=== PATIENT | male | born 1945 | race Caucasian/White ===

== ENCOUNTER 2017-01-17 17:27 | Inpatient (IN) | payer MEDICARE ==
[~2017-01-17] VITALS: Ht 177.8 cm; Wt 73.2 kg
[2017-01-17] VITALS (7 sets, daily range): BP systolic 86–109; BP diastolic 47–59
[~2017-01-17 17:27] MED LIST: ALPRAZOLAM0.25 M1 PO; AMLODIPINE10 MG PO; ASPIRIN325 MG PO; ENTRESTO 49-511 TAB PO; FERROUS SULF325 M1 PO; FUROSEMIDE20 MG PO; GLUCOPHAGE1000 MG PO; GLYBURIDE5 M1 PO; HYDROCO/APAP1 TA9 PO; INVOKAMET 150-11 TAB PO; LEVOTHYROXIN100 MC1 PO; LISINOP/HCTZ1 TA1 PO; LORTAB 7.5 PO; LOSARTAN POTASS50 MG PO; PRILOSEC40 MG PO; ROBITUSSIN AC10 ML PO; TOPROL XL PO; ULTRAM50 M1 PO
[2017-01-17 18:09] LABS: HEMATOCRIT 49.7 % (39.0-50.0); HEMOGLOBIN 16.6 g/dl (14.0-18.0); IMMATURE GRANULOCYTES 0.9 % (0.0-1.0); MEAN CELL VOLUME 88.6 fL CALC (80.0-100.0); MEAN CORPUSCULAR HGB 29.6 pG CALC (26.0-32.0); MEAN CORPUSCULAR HGB CONC 33.4 g/L CALC (32.0-36.0); NEUT# 5.52 thou/uL (1.82-7.42); RED BLOOD COUNT 5.61 mill/uL (4.70-6.10); RED CELL DISTRI WIDTH 15.9 % (11.5-15.5)
[2017-01-17] MEDS ORDERED: DIGOXIN0.125 MG PO (18:09)
[2017-01-17] MEDS ORDERED: ATORVASTATIN CA80 MG PO (18:09)
[2017-01-17] MEDS ORDERED: DOCUSATE CAL240 MG PO (18:10)
[2017-01-17] MEDS ORDERED: ASPIRIN81 MG PO (18:10)
[2017-01-17] MEDS ORDERED: FLONASE AL50 MCG/ACT (18:11)
[2017-01-17] MEDS ORDERED: ENTRESTO 24-261 TAB PO (18:11)
[2017-01-17] MEDS ORDERED: METHOCARBAM500 MG PO (18:12)
[2017-01-17] MEDS ORDERED: LEVOTHYROXIN100 MCG PO (18:12)
[2017-01-17] MEDS ORDERED: METO50TA52 PO (18:13)
[2017-01-17] MEDS ORDERED: ALDACTONE25 MG PO (18:15)
[2017-01-17] MEDS ORDERED: STIOLTO RESPIMA1 AER (18:16)
[2017-01-17] MEDS ORDERED: TRAMADOL HCL50 MG PO (18:17)
[2017-01-17] MEDS ORDERED: BRILINTA90 MG PO (18:17)
[2017-01-17] MEDS ORDERED: LORTAB 5-325 MG1 TAB PO (18:18)
[2017-01-17 18:27] LABS: ALBUMIN 4.8 g/dL (3.2-5.0); BILIRUBIN, TOTAL 0.7 mg/dL (0.0-1.4); CALCIUM 10.4 mg/dL (8.4-10.2); CREATININE 1.5 mg/dL (0.7-1.3); MAGNESIUM 2.2 mg/dL (1.6-2.3); TOTAL PROTEIN 8.8 g/dL (6.3-8.2)
[2017-01-17 18:29] LABS: POTASSIUM 6.3 mmol/l (3.5-5.1)
[2017-01-17] MEDS ORDERED: ATIVAN1 MG PO (18:56)
[2017-01-18] VITALS (9 sets, daily range): BP systolic 92–110; BP diastolic 53–66
[2017-01-18 06:05] LABS: HEMATOCRIT 43.7 % (39.0-50.0); HEMOGLOBIN 14.5 g/dl (14.0-18.0); IMMATURE GRANULOCYTES 0.3 % (0.0-1.0); MEAN CELL VOLUME 88.1 fL CALC (80.0-100.0); MEAN CORPUSCULAR HGB 29.2 pG CALC (26.0-32.0); MEAN CORPUSCULAR HGB CONC 33.2 g/L CALC (32.0-36.0); NEUT# 4.12 thou/uL (1.82-7.42); RED BLOOD COUNT 4.96 mill/uL (4.70-6.10); RED CELL DISTRI WIDTH 15.8 % (11.5-15.5)
[2017-01-18 06:36] LABS: BUN 49 mg/dL (8-23); BUN/CREATININE RATIO 39 (12-20 (CALC)); CARBON DIOXIDE 23 mmol/l (22-30); CHLORIDE 100 mmol/l (95-108); CREATININE 1.3 mg/dL (0.7-1.3); GFR 55 ML/MIN (>=60 (CALC)); GFR FOR AFR.AMER. > 60 ML/MIN (>=60 (CALC)); GLUCOSE 142 mg/dL (82-115); SODIUM 134 mmol/l (137-146)
[2017-01-18 06:39] LABS: ANION GAP 17 (6-22 (CALC)); POTASSIUM 5.5 mmol/l (3.5-5.1)
[2017-01-19 04:00] VITALS: BP 106/71
[2017-01-19 05:04] LABS: HEMATOCRIT 40.7 % (39.0-50.0); HEMOGLOBIN 13.6 g/dl (14.0-18.0); IMMATURE GRANULOCYTES 0.2 % (0.0-1.0); MEAN CELL VOLUME 88.9 fL CALC (80.0-100.0); MEAN CORPUSCULAR HGB 29.7 pG CALC (26.0-32.0); MEAN CORPUSCULAR HGB CONC 33.4 g/L CALC (32.0-36.0); NEUT# 3.09 thou/uL (1.82-7.42); RED BLOOD COUNT 4.58 mill/uL (4.70-6.10); RED CELL DISTRI WIDTH 15.6 % (11.5-15.5)
[2017-01-19 05:17] LABS: ANION GAP 14 (6-22 (CALC)); BUN 32 mg/dL (8-23); BUN/CREATININE RATIO 31 (12-20 (CALC)); CALCIUM 9.3 mg/dL (8.4-10.2); CALCULATED LDLCHOLESTEROL 18 mg/dL (62-129 (CALC)); CARBON DIOXIDE 26 mmol/l (22-30); CHLORIDE 101 mmol/l (95-108); GFR > 60 ML/MIN (>=60 (CALC)); GFR FOR AFR.AMER. > 60 ML/MIN (>=60 (CALC)); GLUCOSE 174 mg/dL (82-115); HDL CHOLESTEROL 32 mg/dL (>=40); POTASSIUM 4.8 mmol/l (3.5-5.1); SODIUM 136 mmol/l (137-146); TOTAL CHOLESTEROL 65 mg/dl (0-199); TOTAL TRIGLYCERIDES 72 mg/dl (30-149); VLDL CHOLESTROL 14 mg/dl (0-38 (CALC))
[2017-01-19 07:50] VITALS: BP 95/43
[2017-01-19 14:52] VITALS: BP 110/69
== END 2017-01-19 15:28 | DRG 641 ==
LOC: ENPENDDIS → ED 17:27 → ED-I 18:26 → ED 19:14 → ICU 19:15 → MS2 19:15
PROVIDERS: Emergency Medicine; Internal Medicine; ADMIT Internal Medicine; ATTEND Internal Medicine
DX: E87.5 Hyperkalemia (principal); N17.9 Acute kidney failure, unspecified; J44.9 Chronic obstructive pulmonary disease, unspecified; I42.8 Other cardiomyopathies; T50.0X5A Adverse effect of mineralocorticoids and their antagonists, initial encounter; T46.5X5A Adverse effect of other antihypertensive drugs, initial encounter; E11.9 Type 2 diabetes mellitus without complications; I10 Essential (primary) hypertension; E03.9 Hypothyroidism, unspecified; I25.10 Atherosclerotic heart disease of native coronary artery without angina pectoris; I25.5 Ischemic cardiomyopathy; F17.290 Nicotine dependence, other tobacco product, uncomplicated; Z79.84 Long term (current) use of oral hypoglycemic drugs; Z95.5 Presence of coronary angioplasty implant and graft

== ENCOUNTER → 2018-11-15 | Outpatient (REF) | payer MEDICARE ==
[~2018-11-15] MED LIST changes: +ALDACTONE25 MG PO; +ASPIRIN81 MG PO; +ATIVAN1 MG PO; +ATORVASTATIN CA80 MG PO; +BRILINTA90 MG PO; +DIGOXIN0.125 MG PO; +DOCUSATE CAL240 MG PO; +ENTRESTO 24-261 TAB PO; +FLONASE AL50 MCG/ACT; +GLUCOPHAGE500 MG PO; +IPRATROPIU0.5 MG/3 M IN; +LEVOTHYROXIN100 MCG PO; +LORTAB 5-325 MG1 TAB PO; +METHOCARBAM500 MG PO; +METO25TAB PO; +METO50TA52 PO; +STIOLTO RESPIMA1 AER; +TRAMADOL HCL50 MG PO
[2018-11-15 09:49] LABS: HEMATOCRIT 40.5 % (39.0-50.0); HEMOGLOBIN 13.5 g/dl (14.0-18.0); MEAN CELL VOLUME 94.6 fL CALC (80.0-100.0); MEAN CORPUSCULAR HGB 31.5 pG CALC (26.0-32.0); MEAN CORPUSCULAR HGB CONC 33.3 g/L CALC (32.0-36.0); RED BLOOD COUNT 4.28 mill/uL (4.70-6.10); RED CELL DISTRI WIDTH 14.4 % (11.5-15.5)
[2018-11-15 10:21] LABS: ALBUMIN 4.1 g/dL (3.2-5.0); ALKALINE PHOSPHATASE 63 u/l (38-126); ANION GAP 16 (6-22 (CALC)); BILIRUBIN, TOTAL 0.4 mg/dL (0.0-1.4); BUN 24 mg/dL (8-23); BUN/CREATININE RATIO 20 (12-20 (CALC)); CALCULATED LDLCHOLESTEROL 20 mg/dL (62-129 (CALC)); CARBON DIOXIDE 27 mmol/l (22-30); CHLORIDE 103 mmol/l (95-108); CHOLESTEROL HDL RATIO 2.2 (<4.4 (CALC)); CREATININE 1.2 mg/dL (0.7-1.3); GFR 60 ML/MIN (>=60 (CALC)); GFR FOR AFR.AMER. > 60 ML/MIN (>=60 (CALC)); HDL CHOLESTEROL 35 mg/dL (>=40); POTASSIUM 4.6 mmol/l (3.5-5.1); SGOT/AST 18 u/l (19-48); SODIUM 141 mmol/l (137-146); TOTAL CHOLESTEROL 76 mg/dl (0-199); TOTAL PROTEIN 6.9 g/dL (6.3-8.2); TOTAL TRIGLYCERIDES 105 mg/dl (30-149); VLDL CHOLESTROL 21 mg/dl (0-38 (CALC))
[2018-11-15 10:47] LABS: TSH, 3RD GENERATION 1.39 uIU/mL (0.47 - 4.68)
== END | disposition home or self-care (01) ==
LOC: LAB 08:50
PROVIDERS: ATTEND Nurse Practitioner Adult Health
DX: E53.8 Deficiency of other specified B group vitamins (principal); E87.5 Hyperkalemia; I10 Essential (primary) hypertension; E11.29 Type 2 diabetes mellitus with other diabetic kidney complication; Z12.5 Encounter for screening for malignant neoplasm of prostate

== ENCOUNTER 2020-08-05 07:46 | Day surgery (SDC) | payer MEDICARE ==
[~2020-08-05] VITALS: Ht 177.8 cm; Wt 81.6 kg
[~2020-08-05 07:46] MED LIST changes: +CARVEDILOL12.5 MG PO; +FLONASE AL50 MCG/ACT IN; +JANUVIA100 MG PO; +LEXAPRO10 MG PO; +LORATADINE10 M1 PO; +PLAVIX75 MG PO; +SINGULAIR10 MG PO; +TIZANIDINE2 MG PO; +VITAMIN B-12500 MCG PO; +VITAMIN C500 M5 PO; +XANAX0.5 MG PO
[2020-08-05 13:52] VITALS: BP 132/54
== END 2020-08-05 11:15 | disposition home or self-care (01) ==
LOC: ENDO 07:46
PROVIDERS: ATTEND Surgery
PROC: 0DBF8ZX Excision of Right Large Intestine, Via Natural or Artificial Opening Endoscopic, Diagnostic (ICD-10-PCS; principal; 2020-08-05)
PROC: 0DBN8ZX Excision of Sigmoid Colon, Via Natural or Artificial Opening Endoscopic, Diagnostic (ICD-10-PCS; 2020-08-05)
DX: K63.5 Polyp of colon (principal); K57.30 Diverticulosis of large intestine without perforation or abscess without bleeding; K64.8 Other hemorrhoids; F17.210 Nicotine dependence, cigarettes, uncomplicated; Z95.810 Presence of automatic (implantable) cardiac defibrillator; Z20.828 Contact with and (suspected) exposure to other viral communicable diseases

== ENCOUNTER 2021-11-03 07:12 | Day surgery (SDC) | payer MEDICARE ==
[~2021-11-03] VITALS: Ht 177.8 cm; Wt 81.6 kg
[~2021-11-03 07:12] MED LIST changes: +FERROUS SULF325 M2 PO; +PROTONIX20 MG PO; +SPIRONOLACT25 MG PO; +ZINC30 M1 PO
[2021-11-03 09:21] VITALS: BP 110/68
== END 2021-11-03 09:36 | disposition home or self-care (01) ==
LOC: ENDO 07:12 → ORM 08:45 → ENDO 08:45
PROVIDERS: ATTEND Surgery
PROC: 0DB98ZX Excision of Duodenum, Via Natural or Artificial Opening Endoscopic, Diagnostic (ICD-10-PCS; principal; 2021-11-03)
DX: D64.9 Anemia, unspecified (principal); K29.80 Duodenitis without bleeding; K44.9 Diaphragmatic hernia without obstruction or gangrene; K21.9 Gastro-esophageal reflux disease without esophagitis; I10 Essential (primary) hypertension; E11.9 Type 2 diabetes mellitus without complications; I25.10 Atherosclerotic heart disease of native coronary artery without angina pectoris; Z95.5 Presence of coronary angioplasty implant and graft; Z95.810 Presence of automatic (implantable) cardiac defibrillator; D50.9 Iron deficiency anemia, unspecified; E03.9 Hypothyroidism, unspecified; E11.29 Type 2 diabetes mellitus with other diabetic kidney complication; I50.22 Chronic systolic (congestive) heart failure; J44.9 Chronic obstructive pulmonary disease, unspecified

== ENCOUNTER 2022-05-02 17:08 | Emergency (ER) | payer MEDICARE ==
[~2022-05-02] VITALS: Ht 177.8 cm; Wt 82.7 kg
[2022-05-02 17:16] VITALS: BP 121/91
[2022-05-02 17:31] VITALS: BP 125/67
[2022-05-02 17:51] LABS: HEMATOCRIT 30.2 % (39.0-50.0); HEMOGLOBIN 9.8 g/dl (14.0-18.0); IMMATURE GRANULOCYTES 0.2 % (0.0-5.0); MEAN CELL VOLUME 91.8 fL CALC (80.0-100.0); MEAN CORPUSCULAR HGB 29.8 pG CALC (26.0-32.0); MEAN CORPUSCULAR HGB CONC 32.5 g/dL CAL (32.0-36.0); NEUT# 4.4 thou/uL (1.82-7.42); RED BLOOD COUNT 3.29 mill/uL (4.70-6.10); RED CELL DISTRI WIDTH 14.6 % (11.5-15.5)
[2022-05-02 18:24] LABS: ALBUMIN 3.9 g/dL (3.2-5.0); ALKALINE PHOSPHATASE 91 u/l (38-126); ANION GAP 12 (6-22 (CALC)); BILIRUBIN, TOTAL 0.3 mg/dL (0.0-1.4); BUN 20 mg/dL (8-23); BUN/CREATININE RATIO 19 (12-20 (CALC)); CARBON DIOXIDE 28 mmol/l (22-30); CHLORIDE 102 mmol/l (95-108); CREATININE 1.1 mg/dL (0.7-1.3); GFR FOR AFR.AMER. > 60 ML/MIN (>=60 (CALC)); GFR OTHER RACES > 60 ML/MIN (>=60 (CALC)); POTASSIUM 4.3 mmol/l (3.5-5.1); SGOT/AST 21 u/l (19-48); SODIUM 137 mmol/l (137-146); TOTAL PROTEIN 7.2 g/dL (6.3-8.2)
[2022-05-02 19:00] VITALS: BP 133/61
[2022-05-02 19:03] VITALS: BP 133/61
== END 2022-05-02 19:22 | disposition home or self-care (01) ==
LOC: ED 17:08
PROVIDERS: Internal Medicine
DX: M79.604 Pain in right leg (principal); Z95.2 Presence of prosthetic heart valve

== ENCOUNTER 2024-10-01 16:57 | Inpatient (IN) | payer MEDICARE ==
[~2024-10-01] VITALS: Ht 177.8 cm; Wt 90.0 kg
[2024-10-01 17:25] LABS: BASO% 1.2 % (0-3); HEMATOCRIT 33.4 % (39.0-50.0); IMMATURE GRANULOCYTES 0.4 % (0.0-5.0); LYMPH% 10.3 % (15-41); MEAN CELL VOLUME 82.9 fL CALC (80.0-100.0); MEAN CORPUSCULAR HGB 27.3 pG CALC (26.0-32.0); MEAN CORPUSCULAR HGB CONC 32.9 g/dL CAL (32.0-36.0); MONO% 19.9 % (2-13); NEUT# 3.83 thou/uL (1.82-7.42); NEUT% 68.2 % (42-76); RED BLOOD COUNT 4.03 mill/uL (4.70-6.10); RED CELL DISTRI WIDTH 17.4 % (11.5-15.5)
[2024-10-01] MEDS ORDERED: FUROSEMIDE 40 MG/4 ML SDV IV SCH (17:40)
[2024-10-01 17:41] LABS: CREATININE 1.7 mg/dL (0.7-1.3); POTASSIUM 2.8 mmol/l (3.5-5.1)
--- NOTE | 2024-10-01 17:42 | NUR ---
SPOKE WITH DR HERNANDEZ AND DR TIM RE: CONSULTATIONS VERBALIZED UNDERSTANDING.
[2024-10-01 18:30] VITALS: BP 110/55
[2024-10-01 18:50] VITALS: BP 110/55
[2024-10-01] MEDS ORDERED: ALPRAZolam 0.5 MG/TAB PO PRN (20:00)
[2024-10-01 20:58] LABS: URINE BILIRUBIN - DIPSTICK Negative (NEGATIVE); URINE BLOOD DIPSTICK Negative (NEGATIVE); URINE COLOR Yellow; URINE GLUCOSE - DIPSTICK Negative (NEGATIVE); URINE KETONE Negative (NEGATIVE); URINE LEUK ESTERASE Negative (NEGATIVE); URINE NITRITE - DIPSTICK Negative (Negative); URINE PROTEIN - DIPSTICK 100 mg/dL (NEG-TRACE); URINE SPECIFIC GRAVITY 1.015; URINE UROBILINOGEN - DIPSTICK 0.2 E.U./dL (0.2)
[2024-10-01] MEDS ORDERED: PANTOPRAZOLE SODIUM Sesquihydr 40 MG/TAB PO SCH (21:00)
[2024-10-01] MEDS ORDERED: CARVEDILOL 6.25 MG/TAB PO SCH (21:00)
[2024-10-01 21:18] LABS: URINE RBC 0-2 RBC/hpf (0-5); URINE RENAL EPITHELIAL CELLS FEW hpf; URINE SQUAMOUS EPITHELIAL CELL RARE EPI/hpf (0-FEW); URINE TRANSITIONAL EPI. CELLS RARE hpf; URINE WBC 0-2 WBC/hpf (0-5)
[2024-10-01 21:19] LABS: URINE COARSE GRANULAR CAST FEW lpf; URINE HYALINE CAST FEW lpf (NONE-RARE)
[2024-10-01] MEDS ORDERED: POTASSIUM CHLORIDE 20 MEQ/100 ML BAG IV ONE (21:50)
[2024-10-01] MEDS ORDERED: POTASSIUM CHLORIDE 20 MEQ/TAB PO SCH (21:50)
[2024-10-02 03:33] VITALS: BP 116/59
[2024-10-02 05:34] LABS: ALBUMIN 3.3 g/dL (3.2-5.0); BILIRUBIN, TOTAL 1.2 mg/dL (0.2-1.3); CREATININE 1.7 mg/dL (0.7-1.3); POTASSIUM 3.6 mmol/l (3.5-5.1); TOTAL PROTEIN 6.2 g/dL (6.3-8.2)
[2024-10-02] MEDS ORDERED: LEVOTHYROXINE SODIUM 100 MCG TAB PO SCH (06:00)
[2024-10-02] MEDS ORDERED: IPRATROPIUM-Albuterol 0.5MG-2.5MG/3 ML IN PRN (07:10)
[2024-10-02] MEDS ORDERED: FUROSEMIDE 40 MG/4 ML SDV IV SCH (07:15)
--- NOTE | 2024-10-02 07:25 | NUR ---
PATIENT AWAKE IN BED WITH C/O OF DIFFICULTY BREATHING. PT PROVIDED WITH A BOOST UP IN BED AND A DUO NEB TREATMENT. VITALS STABLE WITH TEMP OF 100.1. O2 STATS BETWEEN 94-95% ON 2L NC. AND VIRGINIE CISNEROS NOTIFIED AND AWARE. PT DENIES ANY PAIN OR N/D/V AT THIS TIME. BED IN LOWEST POSITION. PERSONAL ITEMS WELL CALL LIGHT WITHIN. BED IN LOWEST POSITION. POC ONGOING.
[2024-10-02 07:26] VITALS: BP 140/68
[2024-10-02 07:49] LABS: BASO% 0.9 % (0-3); EOS% 0.2 % (0-8); HEMOGLOBIN 11.4 g/dl (14.0-18.0); IMMATURE GRANULOCYTES 0.3 % (0.0-5.0); LYMPH% 12.3 % (15-41); MEAN CELL VOLUME 84.7 fL CALC (80.0-100.0); MEAN CORPUSCULAR HGB 26.8 pG CALC (26.0-32.0); MEAN CORPUSCULAR HGB CONC 31.7 g/dL CAL (32.0-36.0); NEUT# 4.65 thou/uL (1.82-7.42); NEUT% 71.3 % (42-76); RED BLOOD COUNT 4.25 mill/uL (4.70-6.10); RED CELL DISTRI WIDTH 17.8 % (11.5-15.5)
--- NOTE | 2024-10-02 07:50 | NUR ---
0657. Patient with complain of shortness of breath, resptirations 24 and labored breathing, provider notified, vitals stable at this time, placed on 2 NC sating at 95 %, chest x ray, lasix and duoneb was ordered by provider
[2024-10-02 07:55] VITALS: BP 140/68
[2024-10-02] MEDS ORDERED: ACETAMINOPHEN 325 MG/TAB PO PRN (07:55)
[2024-10-02] MEDS ORDERED: DEXTROSE 250 ML IV PRN (08:20)
[2024-10-02] MEDS ORDERED: ASPIRIN 81 MG/TAB PO SCH (09:00)
[2024-10-02] MEDS ORDERED: CLOPIDOGREL BISULFATE 75 MG/TAB TAB PO SCH (09:00)
[2024-10-02] MEDS ORDERED: DOXYCYCLINE HYCLATE 100 MG in SODIUM CHLORIDE 0.9% 100 ML IV SCH (10:00)
[2024-10-02 10:42] VITALS: BP 111/56
[2024-10-02] MEDS ORDERED: IPRATROPIUM-Albuterol 0.5MG-2.5MG/3 ML IN SCH (11:00)
[2024-10-02] MEDS ORDERED: INSULIN LISPRO 100 UNITS/ML ML SC SCH (11:00)
[2024-10-02 11:36] VITALS: BP 111/56
--- NOTE | 2024-10-02 12:31 | NUR ---
PATIENT TRANSFERED TO ICU PER DR'S ORDERS. ALL BELONGINGS SENT WITH PT. BEDSIDE SHIFT REPORT PROVIDED.
--- NOTE | 2024-10-02 13:20 | NUR ---
PT TRANSFERRED FROM MED SURG TO ICU 8 FOR INCREASED WEAKNESS AND HAVING TROUBLE BREATHING. SATS 95, BLOOD [id number], PT ALERT/ORIENTED ,, PT SLEEPING AT THIS TIME.
--- NOTE | 2024-10-02 13:36 | NUR ---
ULTRASOUND HERE FOR PROCEDURE, PT TRYING TO CLIMB OUT OF BED
[2024-10-02] MEDS ORDERED: methylPREDNISolone Sod Succ 40 MG/ML SDV IV SCH (14:00)
[2024-10-02] MEDS ORDERED: ENTRESTO 97-1031 TAB PO (15:50)
[2024-10-02 17:20] VITALS: BP 92/49
--- NOTE | 2024-10-02 17:21 | NUR ---
family at bedside, pt blood pressure has been on low side, dr. bedoya notified, orders will be placed for antibiotics. pt had some darker color sputum, but spit it into towel before i could get a specimum
[2024-10-02] MEDS ORDERED: SODIUM CHLORIDE 0.9% 1,000 ML IV SCH (17:30)
[2024-10-02] MEDS ORDERED: Heparin SODIUM (Porcine) 500 ML IV PRN (17:30)
[2024-10-02] MEDS ORDERED: Heparin SODIUM (Porcine) 5,000 UNITS/ML SDV IV ONE (17:30)
[2024-10-02 18:03] LABS: BASO% 0.2 % (0-3); HEMATOCRIT 32.2 % (39.0-50.0); HEMOGLOBIN 10.5 g/dl (14.0-18.0); IMMATURE GRANULOCYTES 0.3 % (0.0-5.0); MEAN CELL VOLUME 84.1 fL CALC (80.0-100.0); MEAN CORPUSCULAR HGB 27.4 pG CALC (26.0-32.0); MEAN CORPUSCULAR HGB CONC 32.6 g/dL CAL (32.0-36.0); MONO% 5.7 % (2-13); NEUT# 14.81 thou/uL (1.82-7.42); NEUT% 90.8 % (42-76); RED BLOOD COUNT 3.83 mill/uL (4.70-6.10); RED CELL DISTRI WIDTH 17.5 % (11.5-15.5)
[2024-10-02 18:21] LABS: ACT PARTIAL THROMBO TIME 32.4 SECONDS (20.0-32.5)
[2024-10-02 18:23] LABS: INTERNATIONAL NORMALIZED RATIO 1.5 RATIO (0.7-1.3); PROTHROMBIN TIME 15.8 SECONDS (9.0-12.5)
--- NOTE | 2024-10-02 20:00 | NUR ---
REPORT RECD FROM DAY SHIFT RN. FAMILY BEDSIDE. AFTER REVIEWING NEW ORDERS TO START HEPARIN GTT, VERIFIED BY TWO RNS - DISCUSSED PLAN OF CARE WITH FAMILY. FAMILY SHARED THAT PT HAS RECENTLY BEEN INTERMITTENTLY CONFUSED AT NIGHT AND HAS HAD ONE OR MORE RECENT FALLS AT HOME. DECIDED THAT FOR THE SAFETY OF THE PATIENT, PT WILL BE LIMITED TO URINAL/BEDPAN DURING ANTICOAGULATION AT THE AGREED REQUEST OF THE FAMILY DUE TO SIGNIFICANT HIGH RISK OF FALL AND POTENTIAL INJURY. PT IS A POOR HISTORIAN AND SUCH HAS MEMORY RECALL LAPSES REQUIRING FREQUENT REMINDERS AND REDIRECTION BUT IS EASILY REDIRECTABLE. FALL PRECAUTIONS IN PLACE TO INCLUDE SIGNAGE WITH BED ALARM ENGAGED. HEPARIN DRIP INITIATED PER PROTOCOL.
[2024-10-02] MEDS ORDERED: PATIENT' OWN MED 1 EA DOSE PO SCH (21:00)
--- NOTE | 2024-10-02 21:30 | NUR ---
PT REQUESTED CHANGE/CLEAN GOWN. PARTIAL BED BATH PERFORMED WITH NEW LINEN APPLIED. INCREASED FIDGETING AND PULLING AT BLANKET/WIRES ETC. WRAPPED IV SITE IN COBAND TO PROTECT SITE FROM DISLOCATION. PT APPEARS TO NOT LIKE THE GOWN AND IS FIDDLING WITH GOWN RATHER THAN THE TELE LINES/ETC - ALLOWED PATIENT TO HAVE GOWN OFF. ASKS FOR AND REQUESTS ASSISTANCE WITH URINAL, VOIDS WITHOUT COMPLICATION. BLOOD PRESSURE REMAINS STABLE WITH MAP OF 60 ON FLUIDS PER MD ORDER. NO SIGNS OF DISTRESS. FALL PRECAUTIONS IN PLACE
[2024-10-02] MEDS ORDERED: CEFEPIME HYDROCHLORIDE 2 GM in SODIUM CHLORIDE 0.9% 100 ML IV SCH (22:00)
[2024-10-03] VITALS (7 sets, daily range): BP systolic 78–95; BP diastolic 37–71
--- NOTE | 2024-10-03 | NUR ---
LAB DRAW REQUESTED FOR PTT HEPARIN PROTOCOL. LAB DRAW COMPLETED AT 0000. PT REMAINS STABLE WITH NO DISTRESS NOTED AND FALL PRECAUTIONS IN PLACE WITH BED ALARM ENGAGED.
--- NOTE | 2024-10-03 02:15 | NUR ---
LAB CALLED AT 0200 WITH PTT, REQUIRED TO HOLD FOR 1 HR PER PROTOCOL AND REDUCE BY HEPARIN FLOW SHEET ORDERED. HELD FOR 1 HR AND RESTARTED AT 0315AM 1150U/HR WITH REPEAT PTT ORDERED FOR 0915AM. PT IS EXPORATING AND IS CLEARING SECRETIONS BETTER THAN PREVIOUSLY IN THE SHIFT AND IS MAINTAINING SATURATIONS OF 92-95%. FALL PRECAUTIONS IN PLACE.
[2024-10-03 06:23] LABS: BASO% 0.3 % (0-3); HEMATOCRIT 33.6 % (39.0-50.0); HEMOGLOBIN 10.8 g/dl (14.0-18.0); IMMATURE GRANULOCYTES 0.1 % (0.0-5.0); LYMPH% 3.7 % (15-41); MEAN CELL VOLUME 84.4 fL CALC (80.0-100.0); MEAN CORPUSCULAR HGB 27.1 pG CALC (26.0-32.0); MEAN CORPUSCULAR HGB CONC 32.1 g/dL CAL (32.0-36.0); MONO% 3.6 % (2-13); NEUT# 13.96 thou/uL (1.82-7.42); NEUT% 92.3 % (42-76); RED BLOOD COUNT 3.98 mill/uL (4.70-6.10); RED CELL DISTRI WIDTH 17.9 % (11.5-15.5)
--- NOTE | 2024-10-03 06:23 | NUR ---
PT RESTING COMFORTABLY. DENIES COMPLAINTS. VITALS REMAIN STABLE AT THIS TIME. NO SIGN OF DISTRESS. MD AWARE AND UPDATED OF PT CONDITION. PT REQUESTS TO REST AND CONTINUE TO SLEEP. ASSISTED TO REPOSITION
[2024-10-03 06:38] LABS: ALBUMIN 2.8 g/dL (3.2-5.0)
[2024-10-03 07:37] LABS: BILIRUBIN, TOTAL 0.9 mg/dL (0.2-1.3); MAGNESIUM 1.7 mg/dL (1.6-2.3); POTASSIUM 3.9 mmol/l (3.5-5.1); TOTAL PROTEIN 5.6 g/dL (6.3-8.2)
[2024-10-03] MEDS ORDERED: PANTOPRAZOLE SODIUM Sesquihydr 40 MG/TAB PO SCH (09:00)
[2024-10-03] MEDS ORDERED: CEFEPIME HYDROCHLORIDE 2 GM in SODIUM CHLORIDE 0.9% 100 ML IV SCH (10:00)
--- NOTE | 2024-10-03 20:00 | NUR ---
PATIENT LYING IN BED RESTING ON L SIDE. ASSESSMENT COMPLETED. PATIENT ALERT AND ORIENTED X 4. DENIES PAIN. LUNGS COARSE TO ASCULTATION. SOB WITH EXERTION NOTED. PATIENT ON 2L NC, DENIES OXYGEN USE AT HOME. STRONG PERIPHERAL PULSES. PATIENT DECLINED HOSPITAL ISSUED NONSLIP SOCKS. NO APPARENT DISTRESS NOTED. SAFETY MEASURES IN PLACE INCLUDING BED IN LOW POSITION AND CALL LIGHT RESTING NEXT TO R HAND. WILL CONTINUE WITH PLAN OF CARE.
[2024-10-03] MEDS ORDERED: Heparin SODIUM (Porcine) 5,000 UNITS/ML SDV SC SCH (21:00)
--- NOTE | 2024-10-03 22:00 | NUR ---
PATIENT WATCHING TV. DENIES CONCERNS AT TIHS TIME. 400 mL OF JOSSIE URINE NOTED IN URINAL. ALL NEEDS MET. WILL CONTINUE WITH PLAN OF CARE.
[2024-10-04] VITALS (20 sets, daily range): BP systolic 96–129; BP diastolic 48–78
--- NOTE | 2024-10-04 | NUR ---
PATIENT LYING IN BED RESTING ON L SIDE. C/O SORE/DRY THROAT, PATIENT PROVIDED WITH OTC COUGH DROPS REQUESTED. PACED ON THE MONITOR. ALL ADDITIONAL NEEDS MET. WILL CONTINUE WITH PLAN OF CARE.
--- NOTE | 2024-10-04 02:05 | NUR ---
PATIENT LYING IN BED RESTING WITH EYES CLOSED. BREATHING EVEN AND UNLABORED. NO CONCERNS AT THIS TIME. WILL CONTINUE WITH PLAN OF CARE.
--- NOTE | 2024-10-04 04:00 | NUR ---
PATIENT APPEARS TO BE RESTING WITH EYES CLOSED. BREATHING EVEN AND UNLABORED. RISE AND FALL OF CHEST NOTED. NO APPARENT DISTRESS. WILL CONTINUE WITH PLAN OF CARE.
[2024-10-04 05:47] LABS: HEMATOCRIT 34.8 % (39.0-50.0); HEMOGLOBIN 11.4 g/dl (14.0-18.0); MEAN CELL VOLUME 83.5 fL CALC (80.0-100.0); MEAN CORPUSCULAR HGB 27.3 pG CALC (26.0-32.0); MEAN CORPUSCULAR HGB CONC 32.8 g/dL CAL (32.0-36.0); RED BLOOD COUNT 4.17 mill/uL (4.70-6.10)
[2024-10-04 06:01] LABS: ALBUMIN 3.1 g/dL (3.2-5.0); BILIRUBIN, TOTAL 0.9 mg/dL (0.2-1.3); MAGNESIUM 1.7 mg/dL (1.6-2.3); TOTAL PROTEIN 6.1 g/dL (6.3-8.2)
--- NOTE | 2024-10-04 08:08 | NUR ---
PT REPORT RECEIVED FROM ARRANGER ASSEMBLER, PT SITTING UP IN BED WATCHING TV, NO COMPLAINTS AT THIS TIME, VITAL SIGNS STABLE. WILL CONTINUE TO MONITER.
[2024-10-04] MEDS ORDERED: METOPROLOL SUCCINATE 25 MG/TAB-TOPROL XL PO SCH (09:00)
--- NOTE | 2024-10-04 12:47 | NUR ---
family at bedside, pt used urinal, approx 300cc output, light yellow, denies any complaints at this time.
--- NOTE | 2024-10-04 15:54 | NUR ---
pt remains awake and talking and laughing with niece. vital signs continue to be stable. will continue to moniter
--- NOTE | 2024-10-04 20:00 | NUR ---
Report received from dayshift nurse at bedside. Patient slightly anxious. RN oriented patient to take slow deep breathes. Patient report feeling better. Patient AOx4, appropriate. Bed alarm on. Call light within reach. 2 L of O2 NC
--- NOTE | 2024-10-04 22:40 | NUR ---
Patient anxiety eased down. RT at bedside providing breathing treatment. Patient has no complains. No change in reassessment of the other systems
[2024-10-05] VITALS (25 sets, daily range): BP systolic 110–155; BP diastolic 63–106
--- NOTE | 2024-10-05 00:06 | NUR ---
Patient awake watching tv. No change in reassesment. Call light within reach
--- NOTE | 2024-10-05 02:00 | NUR ---
Patient sleeping. no changes in reassessment. call light within reach
--- NOTE | 2024-10-05 04:37 | NUR ---
Patient awake. Patient used call light to ask help turning lights off, done by RN. No changes in reassessment
[2024-10-05 05:49] LABS: BASO% 0.1 % (0-3); HEMATOCRIT 36.8 % (39.0-50.0); HEMOGLOBIN 11.9 g/dl (14.0-18.0); IMMATURE GRANULOCYTES 0.4 % (0.0-5.0); LYMPH% 3.2 % (15-41); MEAN CELL VOLUME 84.8 fL CALC (80.0-100.0); MEAN CORPUSCULAR HGB 27.4 pG CALC (26.0-32.0); MEAN CORPUSCULAR HGB CONC 32.3 g/dL CAL (32.0-36.0); MONO% 3.9 % (2-13); NEUT# 12.07 thou/uL (1.82-7.42); NEUT% 92.4 % (42-76); RED BLOOD COUNT 4.34 mill/uL (4.70-6.10); RED CELL DISTRI WIDTH 18.1 % (11.5-15.5)
[2024-10-05 05:55] LABS: ALBUMIN 3.1 g/dL (3.2-5.0); BILIRUBIN, TOTAL 0.9 mg/dL (0.2-1.3); CREATININE 1.9 mg/dL (0.7-1.3); MAGNESIUM 1.8 mg/dL (1.6-2.3); POTASSIUM 4.4 mmol/l (3.5-5.1)
--- NOTE | 2024-10-05 07:25 | NUR ---
PT REPORT RECEIVED FROM DIRECTOR ALUMNI RELATIONS. PT AWAKE, SITTING UP IN BED, NO COMPLAINTS AT THIS TIME. STATE HE IS HUNGARY, AND ASKED FOR URINAL. WILL CONTINUE TO MONITER
[2024-10-05] MEDS ORDERED: DEXTROSE 250 ML IV PRN (08:40)
[2024-10-05] MEDS ORDERED: INSULIN GLARGINE 100 UNITS/ML SC SCH (09:00)
[2024-10-05] MEDS ORDERED: FUROSEMIDE 40 MG/4 ML SDV IV SCH ×2 (09:00→23:00)
--- NOTE | 2024-10-05 10:33 | NUR ---
PT RESTING QUIETLY WATCHING TV, NO COMPLAINTS AT THIS TIME.
--- NOTE | 2024-10-05 11:37 | NUR ---
PT STATES HE IS FEELING VERY ANXIOUS. ADVISED HIM OF MEDICATION I CAN GIVE HIM, HE APPEARS TO WANT SOMEONE IN ROOM AT ALL TIMES, NO VISITORS HAVE COME IN SO FAR TODAY. NEB TX GIVEN WILL SEE IF AFTER HE STILL NEEDS MEDICATED
--- NOTE | 2024-10-05 17:56 | NUR ---
family at bedside, pt laughing and talking wih them. no fluids infusing at this time per order.
--- NOTE | 2024-10-05 19:30 | NUR ---
RECD REPORT VIA RN. PT IS RESTING COMFORTABLY WITH BEDSIDE. VITALS STABLE ON 2LO2NC SAT 92-94%. DISCUSSED ONE DOSE LASIX GIVEN IN AM AND PT STARTED ON PO XANAX FOR ANXIETY TO BE BID; GIVEN IN AM AND LAST NIGHT PT RESPONDED WELL. DISCUSSED WITH FAMILY, FALL PRECAUTIONS IN PLACE.
--- NOTE | 2024-10-05 22:30 | NUR ---
PT ASKED BY RN IF HE WANTED MEDICATION TO ASSIST WITH SLEEP. PT STATED HE DID AND NEEDED REST. INFORMED BEDSIDE FAMILY MEMBER VISITING HOURS WOULD CONCLUDE AT 2100. AT 2100 AGAIN REMINDED FAMILY OF VISING HOURS ENDING WHEN WAS OBSERVED WAKING PT WHEN HE BECAME DROWSY. THIS PATTERN CONTINUED UNTIL 2199 WHEN NURSE ENTERED ROOM TO PT REMOVING O2 AND TELEMETRY WITH BEDSIDE AND IMPRESSED THE IMPORTANCE OF MEDICATION GIVEN/NEED FOR REST AND SLEEP. WAS ESCORTED TO CALL FAMILY FOR PICKUP. PT RECOVERY CONTINUED TO TAKE LONGER IN ADDITION TO IV ANTIBIOTIC ADMINISTERED OF 350ML AND DESPITE THAT INFUSIONS WERE SLOWED TO PREVENT FVO. PT BECAME AUDIBLY ADVENTITIOUS WITH INCREASING BP AND RAPID LABORED RESPIRATIONS. CALLED DR ELLIS AND RT FOR INTERVNETION. PT RECD 20MG IVP LASIX AND WAS INCREASED TO 4L02NC AFTER BREATHING TX ADMINISTERED. EXPRESSED TO MD AND RT CONCERN THAT EVERY TIME PT REMOVED NC IT WAS PROFOUNDLY LONGER TO RECOVER. PT REQUIRES CONSISTENT SUPERVISION AT THIS TIME TO KEEP OXYGEN IN PLACE.
[2024-10-06] VITALS (26 sets, daily range): BP systolic 103–166; BP diastolic 69–116
--- NOTE | 2024-10-06 | NUR ---
RT CALLED PT CONTINUES TO REMOVE NC WITH PROLONGED RECOVERY; INCREASING IN REBOUND TIME AND LENDING TO RESPIRATORY DRIVE EXHAUSTION. PT IS PRIMARY MOUTH BREATHER, REQ RT EVAL FOR MASK - MASK APPLIED AT 4L TO IMPROVE OXYGENATION. PT INCONTINENT OF URINE X 2 RETURNING DECREASE IN BP TO 118/67 FROM 166/91. BREATH SOUNDS REMAIN CONSISTENT AT THE LUNG LEVEL, AUDIBLE ADVENITIOUS SOUNDS DECREASED. ORDER PLACED FOR FLUTTER VALVE TO INCREASE EXPECTORATION OF RSPIRATORY SECRETIONS AND OBSTRUCTING MUCOUS PLUGS. FALL PRECAUTIONS IN PLACE. LINENS CHANGED, BRIEF APPLIED.
--- NOTE | 2024-10-06 02:31 | NUR ---
PT CONTINUES TO REQUIRE FREQUENT AND CONSISTENT OBSERVATION FOR REMOVAL OF OXYGEN MASK. WHEN REMAINING IN PLACE, PT SATURATION CAN REACH 97% WITH REDUCTION IN RESPIRATORY EFFORT. ON REAPPLICATION FROM REMOVAL, TAKES INCREASINGLY LONGER FOR PT TO RECOVER AND WILL DROP TO LOW 82% WITH GOOD WAVEFORM QUITE RAPIDLY. TURNED PT ON LEFT SIDE TO SHIFT PLEURAL FLUID AND REDUCE CHEST PRESSURE. OFFLOADED ARMS WITH PILLOWS AND REMAINING BEDSIDE TO ENSURE MASK REMAINS IN PLACE. PT IS CURRENTLY STABLE WITH IMPROVED RESPIRATORY EFFORT, REMAINS ON MASK AT 4L. FALL PRECAUTIONS REMAIN IN PLACE.
--- NOTE | 2024-10-06 03:52 | NUR ---
PT STABLE AT THIS TIME, SATTING 95-97% ON 6L VIA MASK, RESTING COMFORTABLY WITH NO SIGNS OF DISTRESS. RESPIRATORY EFFORT CONTINUES TO BE MILDLY SHALLOW WITH APPARENT SECRETIONS BUT IS ABLE TO COUGH AND CLEAR AIRWAY, UNABLE TO EXPECTORATE SECRETIONS OR PRODUCE EXPELLED SPUTUM. FALL PRECAUTIONS IN PLACE.
--- NOTE | 2024-10-06 04:28 | NUR ---
PT CLEANED, INCONTINENT OF URINE (LARGE VOLUME), LINENS CHANGED, ALEJANDRO CARE PERFORMED, PARTIAL BED BATH COMPLETED. PT SELF TURNED WITH ASSISTANCE FROM SIDE RAIL. DISCUSSED BREATHING AND PT STATED HE FEELS MUCH BETTER BUT IS VERY TIRED AND REQUESTS REST. COMPLETED CLEANING AND SUPPLIED WARMED BLANKET FOR COMFORT. PT EXPRESSED GRATITUDE - FALL PRECAUTIONS REMAIN IN PLACE, CALL LIGHT IN REACH, BED ALARM ENGAGED.
[2024-10-06 05:37] LABS: BASO% 0.1 % (0-3); HEMATOCRIT 38.1 % (39.0-50.0); HEMOGLOBIN 12.3 g/dl (14.0-18.0); IMMATURE GRANULOCYTES 0.8 % (0.0-5.0); LYMPH% 4.2 % (15-41); MEAN CORPUSCULAR HGB 27.5 pG CALC (26.0-32.0); MEAN CORPUSCULAR HGB CONC 32.3 g/dL CAL (32.0-36.0); MONO% 6.5 % (2-13); NEUT# 10.97 thou/uL (1.82-7.42); NEUT% 88.4 % (42-76); RED BLOOD COUNT 4.48 mill/uL (4.70-6.10)
[2024-10-06 05:45] LABS: ALBUMIN 3.2 g/dL (3.2-5.0); BILIRUBIN, TOTAL 1.2 mg/dL (0.2-1.3); CREATININE 1.9 mg/dL (0.7-1.3); MAGNESIUM 1.8 mg/dL (1.6-2.3); POTASSIUM 4.5 mmol/l (3.5-5.1); TOTAL PROTEIN 6.3 g/dL (6.3-8.2)
--- NOTE | 2024-10-06 06:08 | NUR ---
RT IN TO REASSESS. PLACED BACK ON 4LNC. PT COMFORTABLE, NO COMPLAINTS. VSS
--- NOTE | 2024-10-06 08:00 | NUR ---
PT IS IN BED, EASILY AROUSABLE. CALL LIGHT IN REACH.
[2024-10-06] MEDS ORDERED: FUROSEMIDE 40 MG/4 ML SDV IV SCH (08:30)
--- NOTE | 2024-10-06 10:00 | NUR ---
PT IS LAYING IN BED, EASILY AROUSABLE. CALL LIGHT IN REACH.
--- NOTE | 2024-10-06 12:26 | NUR ---
PT IS SLEEPING IN BED, EASILY AROUSABLE. CALL LIGHT IN REACH.
--- NOTE | 2024-10-06 13:47 | NUR ---
DR. LIRA NOTIFIED OF PROCALCITONIN LEVEL OF 4.630 WHICH IS TRENDING DOWN
--- NOTE | 2024-10-06 14:07 | NUR ---
PT IS SITTING IN BED AWAKE. CALL LIGTH IN REACH.
--- NOTE | 2024-10-06 16:03 | NUR ---
PT IS WATCHING TV IN BED, CALL LIGHT IN HAND.
--- NOTE | 2024-10-06 20:05 | NUR ---
ASSESSMENT COMPLETED. PT WAS ABLE TO STATE HIS NAME, WHERE HE IS ([facility]), HE ANSWERED THE YEAR CORRECTLY. PT IS SLIGHTLY CONFUSED, BUT IS A + O, SPEECH CLEAR. PT O2 SAT IS 92%, ON 6L NC. HR PACED 78.
[2024-10-06] MEDS ORDERED: methylPREDNISolone Sod Succ 40 MG/ML SDV IV SCH (21:00)
--- NOTE | 2024-10-06 22:03 | NUR ---
PT IS RESTLESS, ANXIOUS, COMPLAINS OF SOB. PT REPOSITIONED, DEMONSTRATED BREATHING TECHNIQUES. NO CHANGE IN PT STATUS, PT IS ALERT BUT CONFUSED. V/S STABLE, CALL LIGHT IN REACH
[2024-10-07] VITALS (23 sets, daily range): BP systolic 128–155; BP diastolic 73–97
--- NOTE | 2024-10-07 00:07 | NUR ---
NO CHANGES NOTED. PT STILL RESTLESS. V/S STABLE. CALL LIGHT IN REACH
--- NOTE | 2024-10-07 03:06 | NUR ---
PT EDUCATED AGAIN ON BREATHING EXERCISES. NO CHNAGES.
[2024-10-07 04:16] LABS: HEMATOCRIT 41.7 % (39.0-50.0); HEMOGLOBIN 12.8 g/dl (14.0-18.0); MEAN CELL VOLUME 87.8 fL CALC (80.0-100.0); MEAN CORPUSCULAR HGB 26.9 pG CALC (26.0-32.0); MEAN CORPUSCULAR HGB CONC 30.7 g/dL CAL (32.0-36.0); RED BLOOD COUNT 4.75 mill/uL (4.70-6.10); RED CELL DISTRI WIDTH 18.5 % (11.5-15.5)
[2024-10-07 04:21] LABS: ALBUMIN 3.3 g/dL (3.2-5.0); BILIRUBIN, TOTAL 1.5 mg/dL (0.2-1.3); CREATININE 2.2 mg/dL (0.7-1.3); POTASSIUM 4.8 mmol/l (3.5-5.1); TOTAL PROTEIN 6.4 g/dL (6.3-8.2)
--- NOTE | 2024-10-07 05:34 | NUR ---
PT ANXIOUS, RESTLESS, COMPLAINED OF SOB, RT WAS NOTIFIED FOR BREATHING TX. V/S STABLE, CALL LIGHT IN REACH
--- NOTE | 2024-10-07 07:20 | NUR ---
PT WAS SLEEPING IN BED, AROUSABLE TO TOUCH. CALL LIGHT HAS FALLEN ON THE FLOOR, WHICH WAS PUT BACK IN REACH OF THE PATIENT. PT HAS REMOVED OXYGEN AND PULSE OX DO TO CONFUSION. NASAL CANULA AND PULSE OX WERE REPLACED. PATIENTS OXYGEN SATURATION IS AT 78. PATIENTS OXYGEN SATURATION RECOVED QUICKLY TO 92.
--- NOTE | 2024-10-07 07:46 | NUR ---
PT SUCTIONED BY DANA ULLOA
--- NOTE | 2024-10-07 07:46 | NUR ---
PT NT SUCTIONED PER VO FROM PHYSICIAN. SUCTION CATHER WAS UNABLE TO BE PASSED IN LEFT NARE DUE TO AN UNKNOWN OBSTRUCTION. CATHER WAS SUCCESSFULLY PASSED VIA RIGHT NARE X2 FOR MODERATE AMOUNT OF THICK MOYA SPUTUM. PT TOLERATED PROCEDURE WELL & VITALS REMAINED STABLE. BS IMPROVED POST PROCEDURE. WILL CONTINUE TO MONITOR.
--- NOTE | 2024-10-07 08:00 | NUR ---
PT SITTING IN FOWLERS. CALL LIGHT IN REACH. PT IS AWAKE.
--- NOTE | 2024-10-07 08:00 | NUR ---
pt not hungry this morning. pt ate one piece of jeffery. pt at one bite of eggs and drank half of coffee.
[2024-10-07] MEDS ORDERED: DOXYCYCLINE HYCLATE 100 MG/CAP PO SCH (09:30)
--- NOTE | 2024-10-07 10:18 | NUR ---
PT IS IN LOWER FOWLERS. CALL LIGHT IN REACH. FAMILY MEMBER AT THE BEDSIDE.
--- NOTE | 2024-10-07 11:26 | NUR ---
SPOKE WITH THE PATIENTS BROTHER MURRAY ON THE PHONE. I GAVE HIM AN UPDATE ON THE PATIENTS CURRENT CONDITION AND PLAN OF CARE.
--- NOTE | 2024-10-07 12:10 | NUR ---
PT IS IN BED AWAKE. CALL LIGHT IN REACH.
--- NOTE | 2024-10-07 14:00 | NUR ---
PT IS AWAKE IN BED, CALL LIGHT IN REACH.
--- NOTE | 2024-10-07 16:19 | NUR ---
PT IS AWAKE IN BED, FAMILY AT THE BEDSIDE. CALL LIGHT IN REACH.
[2024-10-07] MEDS ORDERED: cefTRIAXone SODIUM 2 GM in SODIUM CHLORIDE 0.9% 100 ML IV SCH (18:20)
[2024-10-07] MEDS ORDERED: HYDROmorphone HCL 2 MG/AMP IV SCH (18:30)
--- NOTE | 2024-10-07 20:07 | NUR ---
ASSESSMENT COMPLETED. PT IS CONFUSED, DOES NOT ANSWER QUESTIONS, DOES NOT OBEY COMMANDS. PT REMINDED TO KEEP O2 ON. CRACKLES IN BOTH LUNG LOBES. O2 SAT IS 92%. FLUIDS OFFERED, PT REFUSED. CALL LIGHT IN REACH
--- NOTE | 2024-10-07 22:05 | NUR ---
PT IS RESTLESS, BUT DROWSY. CONTINUES TO PULL O2 OFF. PT REORIENTATED TO ROOM, AND EDUCTED ON NEED FOR O2 TO STAY IN PLACE.
[2024-10-08] VITALS (33 sets, daily range): BP systolic 90–188; BP diastolic 69–114
--- NOTE | 2024-10-08 00:07 | NUR ---
NO CHANGES NOTED. PT IS A LITTLE MORE RESTFUL BUT STILL CONFUSED AND PULLING AT DIFFERENT LEADS. V/S STABLE.
--- NOTE | 2024-10-08 03:18 | NUR ---
PT IS RESTLESS AND CONFUSED, PULLING O2 NC OFF, WELL MONITORING LEADS. PT BECAME AGITATED AND COMBATIVE WHEN ATTEMPTING TO PLACE OXY MASK ON. NC WAS ABLE TO BE PLACED ON, PT EDUCATED ON NEED.
[2024-10-08 05:41] LABS: HEMATOCRIT 45.3 % (39.0-50.0); HEMOGLOBIN 13.5 g/dl (14.0-18.0); MEAN CELL VOLUME 90.1 fL CALC (80.0-100.0); MEAN CORPUSCULAR HGB 26.8 pG CALC (26.0-32.0); MEAN CORPUSCULAR HGB CONC 29.8 g/dL CAL (32.0-36.0); RED BLOOD COUNT 5.03 mill/uL (4.70-6.10); RED CELL DISTRI WIDTH 18.8 % (11.5-15.5)
[2024-10-08 06:03] LABS: ALBUMIN 3.4 g/dL (3.2-5.0); BILIRUBIN, TOTAL 1.5 mg/dL (0.2-1.3); CREATININE 2.6 mg/dL (0.7-1.3); MAGNESIUM 2.1 mg/dL (1.6-2.3); TOTAL PROTEIN 6.5 g/dL (6.3-8.2)
--- NOTE | 2024-10-08 06:23 | NUR ---
PT IS VERY CONFUSED, PULLING AT ALL LINES, REFUSING FLUIDS AND MEDS, SYNTHROID NOT GIVEN. REFUSES TO KEEP LINENS ON. REMINDED NOT TO PULL AT [place]ES. BED ALARM ACTIVATED.
--- NOTE | 2024-10-08 08:00 | NUR ---
PT IN BED, LAYING ON HIS RIGHT SIDE. CALL TENA IN REACH.
[2024-10-08] MEDS ORDERED: FUROSEMIDE 40 MG/4 ML SDV IV SCH (09:00)
[2024-10-08] MEDS ORDERED: predniSONE 20 MG/TAB PO SCH (09:00)
--- NOTE | 2024-10-08 09:48 | NUR ---
Attempted treatment this am but held per nursing, will attempt in pm.
--- NOTE | 2024-10-08 10:00 | NUR ---
PT IS LAYING IN BED, CALL LIGHT IN REACH.
--- NOTE | 2024-10-08 10:22 | NUR ---
PT UNABLE TO SWALLOW PILLS AT THIS TIME. DR LIRA NOTIFIED AND PT MORNING MEDICATIONS HAVE BEEN HELD. WE ARE CURRENTLY MONITORING FOR IMPROVMENTS.
--- NOTE | 2024-10-08 11:43 | NUR ---
LOW BLOOD SUGAR OF 56 DR. LIRA NOTIFIED, SEE NEW ORDERS.
[2024-10-08] MEDS ORDERED: DEXTROSE 10% 500 ML IV PRN (11:55)
--- NOTE | 2024-10-08 12:00 | NUR ---
PT IS LAYING IN BED FAMILY AT THE BEDSIDE. CALL LIGHT IIN REACH.
--- NOTE | 2024-10-08 14:00 | NUR ---
PT IS LAYING IN BED FAMILY AT THE BEDSIDE. CALL LIGHT IN REACH.
--- NOTE | 2024-10-08 14:06 | NUR ---
Treatment held still per nursing.
--- NOTE | 2024-10-08 17:05 | NUR ---
respirations labored breathing 30 breaths per minute. md notified and orders received patient placed on bipap. family on bipap. orders received for transfer to higher level of care for respiratory failure and multi system organ failure.
--- NOTE | 2024-10-08 17:17 | NUR ---
[facility] declined transfer due to their capacity
--- NOTE | 2024-10-08 17:30 | NUR ---
[facility] declined for patient census. call placed for transfer to [facility]. information given and awaiting acceptance
[2024-10-08] MEDS ORDERED: DEXTROSE 5% / 0.9% NACL 1,000 ML IV SCH (17:55)
[2024-10-08] MEDS ORDERED: cefTRIAXone SODIUM 2 GM in SODIUM CHLORIDE 0.9% 100 ML IV SCH (18:00)
--- NOTE | 2024-10-08 18:15 | NUR ---
patient more relaxed respiration 26 and tolerating bipap well. [facility] requesting additional information. family at bedside and update next of kin via phone. verbal permission given to transfer to [facility]
--- NOTE | 2024-10-08 18:30 | NUR ---
received call from dr donaldson. verbal orders given. patient continues on bipap tolerating well
[2024-10-08] MEDS ORDERED: SODIUM BICARBONATE 150 ML in DEXTROSE 5% 850 ML IV PRN (19:35)
--- NOTE | 2024-10-08 19:42 | NUR ---
received call from [facility]. patient accepted to their icu and awaiting bed assignment
[2024-10-08] MEDS ORDERED: SODIUM BICARBONATE 8.4% 50 ML/VIAL IV SCH (19:45)
[2024-10-08] MEDS ORDERED: THIAMINE HCL 100 MG/ML 2ML VIAL IV ONE (21:05)
--- NOTE | 2024-10-08 22:30 | NUR ---
[phone] bipap cont. pt in high fowlers position. lethargic. research nutritionist shows paced rhythm. ivf infusing well. iglesias cath draining yellow urine. niece @ bedside & was updated on pts condition. sitter @ bedside. dr domínguez called this comic book writer. informed of pts condition. he visited pt virtually. orders rec'd. rec'd phone call from jamil @ the transfer center. bed assignment rec'd. [facility] notified of need for transfer. will be here approx 10-09-24 @ 1518. lab angela blood. dr donaldson was notified of transfer time & updated on pts condition. dr rodriguez visited virtually.
[2024-10-09] VITALS: BP 158/87
[2024-10-09 00:16] VITALS: BP 155/83
[2024-10-09 00:30] VITALS: BP 153/85
[2024-10-09 00:45] VITALS: BP 162/87
--- NOTE | 2024-10-09 01:45 | NUR ---
[phone] [facility] here. report given. to go to [id number]. [facility] left @ [phone]. salvatore garcia @ [facility] called [phone]. report given. called daughter von [phone]. message box full. will attempt again this morning.
[2024-10-09] MEDS ORDERED: PIPERACILLIN Sodium-Tazobactam 3.375 GM in SODIUM CHLORIDE 0.9% 100 ML IV SCH ×2 (12:00)
== END 2024-10-09 01:10 | DRG 291 ==
LOC: MS2 16:57 → ICU 16:57 → MS2 10-02 09:33 → ICU 10-02 12:40
PROVIDERS: Internal Medicine; Nurse Practitioner Family; ADMIT Internal Medicine; ATTEND Internal Medicine
PROC: 0T9B70Z Drainage of Bladder with Drainage Device, Via Natural or Artificial Opening (ICD-10-PCS; principal; 2024-10-06)
PROC: 5A09357 Assistance with Respiratory Ventilation, Less than 24 Consecutive Hours, Continuous Positive Airway Pressure (ICD-10-PCS; 2024-10-08)
DX: I13.0 Hypertensive heart and chronic kidney disease with heart failure and stage 1 through stage 4 chronic kidney disease, or unspecified chronic kidney disease (principal); G93.41 Metabolic encephalopathy; I50.23 Acute on chronic systolic (congestive) heart failure; J18.9 Pneumonia, unspecified organism; J96.01 Acute respiratory failure with hypoxia; J44.0 Chronic obstructive pulmonary disease with (acute) lower respiratory infection; J44.1 Chronic obstructive pulmonary disease with (acute) exacerbation; N17.9 Acute kidney failure, unspecified; E87.4 Mixed disorder of acid-base balance; E11.22 Type 2 diabetes mellitus with diabetic chronic kidney disease; N18.31 Chronic kidney disease, stage 3a; E86.9 Volume depletion, unspecified; I48.91 Unspecified atrial fibrillation; I95.9 Hypotension, unspecified; E87.6 Hypokalemia; D64.9 Anemia, unspecified; I25.10 Atherosclerotic heart disease of native coronary artery without angina pectoris; I42.8 Other cardiomyopathies; R74.01 Elevation of levels of liver transaminase levels; E03.9 Hypothyroidism, unspecified; D69.6 Thrombocytopenia, unspecified; I25.5 Ischemic cardiomyopathy; F17.290 Nicotine dependence, other tobacco product, uncomplicated; Z87.01 Personal history of pneumonia (recurrent); Z95.2 Presence of prosthetic heart valve; Z95.5 Presence of coronary angioplasty implant and graft; Z95.810 Presence of automatic (implantable) cardiac defibrillator; Z79.84 Long term (current) use of oral hypoglycemic drugs
CPT/HCPCS: A9540; J0692; J0696; J1171; J1644; J1815; J1940; J2020; J2543; J3411; J3480; Q9967